=== PATIENT | male | born 2005 | race Caucasian/White ===

== ENCOUNTER 2024-02-07 08:02 | Emergency (ER) | payer OTHER ==
[~2024-02-07] VITALS: Ht 167.6 cm; Wt 90.7 kg
[2024-02-07 08:19] VITALS: BP 153/105; PULSE 88; RESP 20; TEMP 98.3; O2SAT 98
[2024-02-07 10:42] VITALS: BP 132/80; PULSE 87; RESP 20; TEMP 98.3; O2SAT 99
== END 2024-02-07 10:42 ==
LOC: MED 08:02
DX: R51.9 Headache, unspecified (principal); M54.2 Cervicalgia; M54.6 Pain in thoracic spine; F19.10 Other psychoactive substance abuse, uncomplicated; V49.9XXA Car occupant (driver) (passenger) injured in unspecified traffic accident, initial encounter; Y93.89 Activity, other specified; Y92.411 Interstate highway as the place of occurrence of the external cause; Y99.8 Other external cause status
CPT/HCPCS: 70450; 71250; 72125; 99284